=== PATIENT | female | born 1985 | race Caucasian/White ===

== ENCOUNTER 2017-01-27 22:34 | Emergency (ER) | payer OTHER ==
[~2017-01-27] VITALS: Ht 162.6 cm; Wt 76.2 kg
[2017-01-27 22:34] VITALS: BP 111/59
--- NOTE | 2017-01-27 23:38 | PHYS DOC ---
Past History Past Medical History: No Pertinent History Past Surgical History: No Surgical History Smoking: Non-smoker Alcohol Use: Occasionally Drug Use: None Adult General Chief Complaint Chief Complaint: ANKLE PROBLEM HPI HPI Patient is a pleasant 31-year-old otherwise healthy female with no major medical problems who presents with left ankle pain began about 4 weeks ago. She believes she may be injured her ankle rolling it. 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 She complains primarily of lateral ankle pain. There is no laxity to the joint itself there is no popping or locking. Patient said the pain doesn't require Tylenol or Motrin but she was asked by her family to come get it evaluated. Review of Systems Review of Systems Constitutional: Denies fever or chills [] Eyes: Denies change in visual acuity, redness, or eye pain [] HENT: Denies nasal congestion or sore throat [] Respiratory: Denies cough or shortness of breath [] Cardiovascular: No additional information not addressed in HPI [] GI: Denies abdominal pain, nausea, vomiting, bloody stools or diarrhea [] : Denies dysuria or hematuria [] Musculoskeletal: Her only complaint is right ankle pain. Integument: Denies rash or skin lesions [] Neurologic: Denies headache, focal weakness or sensory changes [] Physical Exam Physical Exam Constitutional: Well developed, well nourished, no acute distress, non-toxic appearance. [] Cardiovascular:Heart rate regular rhythm, no murmur [] Lungs & Thorax: Bilateral breath sounds clear to auscultation [] Skin: Warm, dry, no erythema, no rash. [] Extremities, no cyanosis, no clubbing, ROM intact, no edema. She has mild tenderness to palpation of the lateral aspect of the malleolus without obvious deformity minimal if any soft tissue swelling. No tenderness along the fifth metatarsal no tenderness along the medial malleolus. Patient has anterior posterior drawer test that is negative Neurologic: Alert and oriented X 3, normal motor function, normal sensory function, no focal deficits noted. [] Psychologic: Affect normal, judgement normal, mood normal. [] EKG EKG [] Radiology/Procedures Radiology/Procedures [] Course & Med Decision Making Course & Med Decision Making Pertinent Labs and Imaging studies reviewed. (See chart for details) 3 view ankle films timed 11:05 PM PM 01/27/[address] Xavier demonstrated no occult fracture mortise. is intact minimal if any soft tissue swelling noted. Impression: Ankle sprain without obvious signs of fracture on plain films. Disposition PCP follow-up primary care physician for routine management of ankle pain physical therapy referral. [] Dragon Disclaimer Dragon Disclaimer This chart was dictated in whole or in part using Voice Recognition software in a busy, high-work load, and often noisy Emergency Department environment. It may contain unintended and wholly unrecognized errors or omissions. Departure Departure: Impression: Primary Impression: Right ankle sprain Disposition: HOME, SELF-CARE Condition: STABLE Referrals: NON,STAFF (PCP) Patient Instructions: Ankle Sprain Additional Instructions: Please return for any new or increasing pain, localized swelling, instability in the joint or if you have any questions or concerns. MICHELLE XAVIER MD Jan 27, 2017 23:38
--- NOTE | 2017-01-28 07:23 | RAD ---
Right ankle, 3 views, 01/27/2017: History: Trauma No fracture or dislocation is identified. There is mild soft tissue swelling, particularly over the lateral malleolus. There is a small inferior calcaneal spur. IMPRESSION: No acute bony abnormality is detected.
== END 2017-01-27 23:40 | disposition home or self-care (01) ==
LOC: ER 22:34
DX: S93.401A Sprain of unspecified ligament of right ankle, initial encounter (principal); X58.XXXA Exposure to other specified factors, initial encounter; Y93.01 Activity, walking, marching and hiking; Y99.8 Other external cause status; Y92.89 Other specified places as the place of occurrence of the external cause
CPT/HCPCS: 73610; 99284